=== PATIENT | male | born 1995 | race Caucasian/White ===

== ENCOUNTER 2020-01-01 12:21 | Emergency (ER) | payer SELFPAY ==
[~2020-01-01] VITALS: Ht 185.4 cm; Wt 107.3 kg
[2020-01-01 13:11] LABS: BASOPHILS # (AUTO) 0.08 x10^3/uL (0-0.1); BASOPHILS % (AUTO) 1 % (0-1); EOSINOPHILS # (AUTO) 0.19 x10^3/uL (0-0.4); EOSINOPHILS % (AUTO) 2 % (1-7); LYMPHOCYTES # (AUTO) 3.25 x10^3/uL (1-3.4); LYMPHOCYTES % (AUTO) 33 % (22-44); MD NO; MEAN CORPUSCULAR HEMOGLOBIN 28.6 pg (27.5-34.5); MEAN CORPUSCULAR HGB CONC 33.6 g/dL (33.2-36.2); MEAN CORPUSCULAR VOLUME 85.2 fL (81-97); MEAN PLATELET VOLUME 9.1 fL (7.4-10.4); MONOCYTES % (AUTO) 7 % (2-9); NEUTROPHILS # (AUTO) 5.58 x10^3/uL (1.8-6.8); NEUTROPHILS % (AUTO) 57 % (42-75); PLATELET COUNT 217 x10^3/uL (130-400); RED CELL DISTRIBUTION WIDTH 12.7 % (9.4-14.8)
[2020-01-01 13:17] LABS: ALANINE AMINOTRANSFERASE 46 U/L (12-78); ALBUMIN 4.3 g/dL (3.4-5.0); ANION GAP 5 mmol/L (5-15); CALCIUM 9.6 mg/dL (8.5-10.1); CHLORIDE 107 mmol/L (98-107)
[2020-01-01 13:19] LABS: ALKALINE PHOSPHATASE 70 U/L (45-117); BILIRUBIN,TOTAL 0.3 mg/dL (0.2-1.0); CREATININE 1.14 mg/dL (0.7-1.3); TOTAL PROTEIN 7.8 g/dL (6.4-8.2)
--- NOTE | 2020-01-01 13:23 | NUR ---
PT AMBULATED BACK TO ROOM WITHOUT DIFFICULTY. REPORTS HE HAS HX OF BACK SPASMS. INSTRUCTED ON CLEAN CATCH URINE SAMPLE.
--- NOTE | 2020-01-01 13:30 | NUR ---
ERP AT NOW.
[2020-01-01 14:08] LABS: MICROSCOPIC INDICATED
[2020-01-01 14:20] LABS: CULTURE INDICATED? NO
[2020-01-01 16:00] VITALS: BP 130/74
--- NOTE | 2020-01-01 16:14 | NUR ---
ERP WAS IN FOR RECHECK. D/C INSTRUCTIONS, MEDS & F/U APPT RV'WD WITH PT, HE VERBALIZES UNDERSTANDING. PT AMBULATED OUT OF ED WITHOUT DIFFICULTY.
== END 2020-01-01 16:17 | disposition home or self-care (01) ==
LOC: ED 16:00
DX: R10.9 Unspecified abdominal pain (principal); M54.9 Dorsalgia, unspecified
CPT/HCPCS: 36415; 74176; 80053; 81001; 83690; 85025; 99284